=== PATIENT | male | born 1970 | race Caucasian/White ===

== ENCOUNTER 2016-08-30 11:24 | Emergency (ER) | payer SELFPAY ==
[2016-08-30 11:34] VITALS: BP 142/78; PULSE 84; RESP 16; TEMP 96.9; O2SAT 97
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
== END 2016-08-30 12:43 | disposition left against medical advice (07) ==
LOC: NEDAMB 11:24
DX: M79.631 Pain in right forearm (principal); S81.012A Laceration without foreign body, left knee, initial encounter; Z72.0 Tobacco use; Z53.29 Procedure and treatment not carried out because of patient's decision for other reasons; V19.9XXA Pedal cyclist (driver) (passenger) injured in unspecified traffic accident, initial encounter; Y93.55 Activity, bike riding; Y92.410 Unspecified street and highway as the place of occurrence of the external cause
CPT/HCPCS: 99284

== ENCOUNTER 2016-09-25 16:58 | Emergency (ER) | payer SELFPAY ==
[~2016-09-25] VITALS: Ht 180.3 cm; Wt 90.9 kg
[2016-09-25 17:00] VITALS: BP 126/70; PULSE 80; RESP 20; TEMP 97.9; O2SAT 90
[2016-09-25] MEDS ORDERED: LURA40 PO (18:21)
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
== END 2016-09-25 19:47 | disposition home or self-care (01) ==
LOC: NEPA 16:58
DX: S06.9X9A Unspecified intracranial injury with loss of consciousness of unspecified duration, initial encounter (principal); Y04.2XXA Assault by strike against or bumped into by another person, initial encounter; R51 Headache; F10.10 Alcohol abuse, uncomplicated; Z72.0 Tobacco use
CPT/HCPCS: 70450